=== PATIENT | female | born 2000 | race Caucasian/White ===

== ENCOUNTER → 2020-03-03 15:29 | Outpatient (BNVA) | payer MEDICAID, SELFPAY | PROVIDERS: Family Provider Nurse Practitioner Family; PCP Nurse Practitioner Family; Referring Provider Family Medicine; Visit Provider Orthopaedic Surgery | DX: M25.562 Pain in left knee (principal) | CPT/HCPCS: 73562 ==

== ENCOUNTER → 2024-03-25 08:32 | Outpatient (BNVA) | payer OTHER, SELFPAY | PROVIDERS: Family Provider Nurse Practitioner Family; PCP Nurse Practitioner Family; Visit Provider Nurse Practitioner Women's Health | DX: N91.2 Amenorrhea, unspecified (principal); Z34.90 Encounter for supervision of normal pregnancy, unspecified, unspecified trimester | CPT/HCPCS: 81025; 84702; 86850; 86900 ==

== ENCOUNTER → 2024-04-12 13:17 | Outpatient (BNVA) | payer OTHER, SELFPAY | PROVIDERS: Family Provider Nurse Practitioner Family; PCP Nurse Practitioner Family; Visit Provider Nurse Practitioner Women's Health | DX: Z36.9 Encounter for antenatal screening, unspecified (principal) | CPT/HCPCS: 76801 ==

== ENCOUNTER → 2024-04-22 09:00 | Outpatient (BNVA) | payer OTHER, SELFPAY | PROVIDERS: Family Provider Nurse Practitioner Family; PCP Nurse Practitioner Family; Visit Provider Nurse Practitioner Women's Health | DX: Z34.90 Encounter for supervision of normal pregnancy, unspecified, unspecified trimester (principal) | CPT/HCPCS: 80307; 84315; 84443; 85025; 86592; 86762; 86803; 86850; 86900; 87086; 87340; 87491; 87591; 87806 ==

== ENCOUNTER → 2024-05-13 14:36 | Outpatient (BNVA) | payer OTHER, SELFPAY | PROVIDERS: Family Provider Nurse Practitioner Family; PCP Nurse Practitioner Family; Visit Provider Obstetrics & Gynecology | DX: Z34.90 Encounter for supervision of normal pregnancy, unspecified, unspecified trimester (principal) | CPT/HCPCS: 84315; 87624 ==

== ENCOUNTER → 2024-06-04 14:14 | Outpatient (BNVA) | payer BC, SELFPAY | PROVIDERS: Family Provider Nurse Practitioner Family; PCP Nurse Practitioner Family; Visit Provider Nurse Practitioner Women's Health | DX: Z32.01 Encounter for pregnancy test, result positive (principal) | CPT/HCPCS: 82105; 84315; 87086 ==

== ENCOUNTER → 2024-07-01 09:24 | Outpatient (BNVA) | payer BC, SELFPAY | PROVIDERS: Family Provider Nurse Practitioner Family; PCP Nurse Practitioner Family; Visit Provider Obstetrics & Gynecology | DX: Z36.9 Encounter for antenatal screening, unspecified (principal) | CPT/HCPCS: 76805 ==

== ENCOUNTER → 2024-07-08 09:47 | Outpatient (BNVA) | payer BC, SELFPAY | PROVIDERS: Family Provider Nurse Practitioner Family; PCP Nurse Practitioner Family; Visit Provider Obstetrics & Gynecology | DX: Z34.90 Encounter for supervision of normal pregnancy, unspecified, unspecified trimester (principal) | CPT/HCPCS: 84315; 85025 ==

== ENCOUNTER → 2024-07-29 14:15 | Outpatient (BNVA) | payer BC, SELFPAY | PROVIDERS: Family Provider Nurse Practitioner Family; PCP Nurse Practitioner Family; Visit Provider Nurse Practitioner Women's Health | DX: Z34.90 Encounter for supervision of normal pregnancy, unspecified, unspecified trimester (principal) | CPT/HCPCS: 84315 ==

== ENCOUNTER → 2024-08-26 11:03 | Outpatient (BNVA) | payer BC, SELFPAY | PROVIDERS: Family Provider Nurse Practitioner Family; PCP Nurse Practitioner Family; Visit Provider Obstetrics & Gynecology | DX: Z34.90 Encounter for supervision of normal pregnancy, unspecified, unspecified trimester (principal) | CPT/HCPCS: 82950; 84315; 85025 ==

== ENCOUNTER → 2024-08-27 15:54 | Outpatient (BNVA) | payer BC, SELFPAY | PROVIDERS: Family Provider Nurse Practitioner Family; PCP Nurse Practitioner Family; Visit Provider Nurse Practitioner Women's Health | DX: Z34.90 Encounter for supervision of normal pregnancy, unspecified, unspecified trimester (principal) | CPT/HCPCS: 81000; 87086 ==

== ENCOUNTER → 2024-09-03 13:24 | Outpatient (BNVA) | payer BC, SELFPAY | PROVIDERS: Family Provider Nurse Practitioner Family; PCP Nurse Practitioner Family; Visit Provider Obstetrics & Gynecology | DX: Z36.9 Encounter for antenatal screening, unspecified (principal) | CPT/HCPCS: 76816 ==

== ENCOUNTER → 2024-09-09 10:51 | Outpatient (BNVA) | payer BC, SELFPAY | PROVIDERS: Family Provider Nurse Practitioner Family; PCP Nurse Practitioner Family; Visit Provider Obstetrics & Gynecology | DX: Z34.90 Encounter for supervision of normal pregnancy, unspecified, unspecified trimester (principal) | CPT/HCPCS: 84315 ==

== ENCOUNTER → 2024-09-24 08:19 | Outpatient (BNVA) | payer BC, SELFPAY | PROVIDERS: Family Provider Nurse Practitioner Family; PCP Nurse Practitioner Family; Visit Provider Nurse Practitioner Women's Health | DX: Z34.90 Encounter for supervision of normal pregnancy, unspecified, unspecified trimester (principal) | CPT/HCPCS: 84315 ==

== ENCOUNTER → 2024-10-07 10:56 | Outpatient (BNVA) | payer BC, SELFPAY | PROVIDERS: Family Provider Nurse Practitioner Family; PCP Nurse Practitioner Family; Visit Provider Nurse Practitioner Women's Health | DX: Z34.90 Encounter for supervision of normal pregnancy, unspecified, unspecified trimester (principal) | CPT/HCPCS: 84315 ==

== ENCOUNTER → 2024-10-21 11:36 | Outpatient (BNVA) | payer BC, SELFPAY | PROVIDERS: Family Provider Nurse Practitioner Family; PCP Nurse Practitioner Family; Visit Provider Obstetrics & Gynecology | DX: Z36.9 Encounter for antenatal screening, unspecified (principal) | CPT/HCPCS: 76816; 84315; 87081 ==

== ENCOUNTER → 2024-10-29 13:52 | Outpatient (BNVA) | payer BC, SELFPAY | PROVIDERS: Family Provider Nurse Practitioner Family; PCP Nurse Practitioner Family; Visit Provider Nurse Practitioner Women's Health | DX: Z34.90 Encounter for supervision of normal pregnancy, unspecified, unspecified trimester (principal) | CPT/HCPCS: 84315 ==

== ENCOUNTER → 2024-11-08 10:59 | Outpatient (BNVA) | payer BC, SELFPAY | PROVIDERS: Family Provider Nurse Practitioner Family; PCP Nurse Practitioner Family; Visit Provider Obstetrics & Gynecology | DX: Z34.90 Encounter for supervision of normal pregnancy, unspecified, unspecified trimester (principal) | CPT/HCPCS: 84315 ==

== ENCOUNTER → 2024-11-14 10:19 | Outpatient (BNVA) | payer BC, SELFPAY | PROVIDERS: Family Provider Nurse Practitioner Family; PCP Nurse Practitioner Family; Visit Provider Nurse Practitioner Women's Health | DX: Z34.90 Encounter for supervision of normal pregnancy, unspecified, unspecified trimester (principal) | CPT/HCPCS: 84315 ==

== ENCOUNTER 2024-11-17 18:09 | Inpatient (IN) | payer BC, SELFPAY ==
[2024-11-17] VITALS (21 sets, daily range): BP systolic 117–141; BP diastolic 58–76; PULSE 75–98; BMI 31.4
--- NOTE | 2024-11-17 18:14 | PM.OPHPUD ---
Labor & Delivery H&P Update Date of Procedure: November 17, 2024 Date H&P Performed: 11/14/24 Changes to previous documentation: 23-year-old female G1, P0 at 40.2 weeks gestation with LMP 02/09/2024, JONY 11/15/2024 based on LMP and consistent with 8-week ultrasound. Patient presented to labor and delivery with complaints of vaginal spotting and onset of contractions on , 11/14/2024 but increased around 4:00 PM. Patient admits to good movement. record reviewed with patient. Patient medical history- SVT currently being treated with metoprolol twice daily. (Unsure of dose) Surgical history?appendectomy Allergies?NKDA Social history?patient denies smoking alcohol or street drugs. Family history?unremarkable lab Blood type O+, antibody screen negative, hep C nonreactive, rubella immune, RPR nonreactive, HIV nonreactive, GC chlamydia not detected, 1 hour Glucola 105, UDS negative Ultrasound 10/11/2024 findings heart rate 161, vertex presentation, placenta anterior without evidence of previa, amniotic fluid index 10.2 cm.. ED FW 2985 g Discussion of patient option of going home letting spontaneous labor progress are being admitted to labor and delivery for augmentation of labor. Review of Pitocin medication to increase contraction frequency and strength. Possibility of nonreassuring monitoring during use of Pitocin which may lead to need to proceed with section delivery. Patient verbalizes understanding and request to proceed with augmentation. EFM?category 1 Pelvic exam?cervix 3 cm / 70%/-2 vertex. Admission Diagnosis: Preop diagnosis: 40.2 weeks gestation Primary indication for procedure: Early labor at 40.2 wk gestation Planned procedure: Admission to labor and delivery for elective augmentation of labor. Related Problem List Diagnoses (1) 40 weeks gestation of : Early labor GBS negative (2) SVT (supraventricular tachycardia): Controlled and treated with metoprolol 50 mg twice daily.
[2024-11-17 19:04] LABS: Basophils % 0.4 %; Eosinophils # 0.1 10^3/uL (0.0-0.8); Eosinophils % 0.8 %; Hematocrit 32.8 % (36-47); Lymphocytes # 1.6 10^3/uL (0.8-4.8); Lymphocytes % 15.1 %; Mean Corpuscular HGB Conc 32.3 g/dL (30-55); Mean Corpuscular Hemoglobin 27.2 pg (27-33); Mean Corpuscular Volume 84.1 fl (85-98); Mean Platelet Volume 12.3 fL (7.4-10.4); Monocytes # 0.7 10^3/uL (0.2-0.9); Monocytes % 6.5 %; Neutrophils # 7.93 10^3/uL (1.8-7.7); Neutrophils % 76.4 %; Nucleated Red Blood Cells % 0 %; Platelet Count 169 10^3/cmm (157-399); Red Cell Distribution Width 14.2 % (12.1-15.1); White Blood Count 10.37 10^3/uL (3.29-11.43)
[2024-11-17] MEDS: dextrose 5%-lactated ringers 1,000 ML 124 ML IV (19:48)
[2024-11-17] MEDS: oxytocin 30 UNIT/500 ML BAG IV (19:48)
--- NOTE | 2024-11-17 23:06 | ANES.PREANE2 ---
Pre-Anesthetic Assessment Height/Weight: Height 1.63 m Weight 83.007 kg Pulse BP O2 Del Method 78 120/63 Room Air 11/17/24 22:49 11/17/24 22:49 11/17/24 18:41 Preop Diagnosis: 40.2 weeks gestation labor epidural Familial anesthetic complications: PONV Was Beta Keiry taken within 24 hours: Yes Was Clonidine taken within 24 hours: N/A Social No alcohol and No tobacco Exam alert, oriented x 3, clear to auscultation bilaterally and regular rate & rhythm Airway Mallampati: Class II History/ROS No significant history except as noted Pulmonary None reported CV/HEM HX SVT controlled with Metoprolol None reported Hepatic None reported GI None reported Metabolic None reported Musc/skel None reported Neuropsych None reported Anesthetic Plan ASA status: 2 Anesthesia: Anesthesia Evaluation and Regional (specify below) (epidural ) Medications/Allergies Home Medications ?Medication ?Instructions ?Recorded ?Confirmed ?Last Taken ?Type PNV 153-FA 400 mcg-om3 35 mg-dha 1 tab PO DAILY 04/22/24 11/17/24 11/17/24 09:00 History 25 mg-epa 5 mg-fish oil chew tablet ( Gummies) metoprolol tartrate 50 mg tablet See Rx Instructions .Route 08/29/24 11/17/24 11/17/24 09:00 Rx .COMPLEX #60 tabs Allergies Allergy/AdvReac Type Severity Reaction Status Date / Time No Known Allergies Allergy Verified 11/14/24 10:11 Current Medications Generic Name Dose Route Start Last Admin Trade Name Freq PRN Reason Stop Dose Admin Dextrose/Lactated Ringer's 1,000 mls @ 125 mls/hr 11/17/24 18:45 11/17/24 19:48 Dextrose 5%-Lactated Ringers IV 124 mls/hr .Q8H ANTONIO Administration Oxytocin 30 unit in 500 mls @ 1 mls/hr 11/17/24 19:00 11/17/24 19:48 Pitocin IV 1 milliunit/min .Q24H ANTONIO 1 mls/hr Protocol Administration 1 MILLIUNIT/MIN PFSH Anesthesia Medical History No pertinent past medical history neghx: htn, dm, thyroid, dvt/pe PCP: [facility] Surgical History No pertinent past surgical history History of appendectomy Family History Denies family history of Colon cancer Ovarian cancer Diabetes Heart disease Breast cancer Hypertension Uterine cancer Thyroid disease Stroke Social History Smoking and tobacco/nicotine status: never used tobacco/nicotine Female Reproductive History : 1 Data Anesthesia 11/17/24 18:30 Short CBC 11/17/24 Range/Units 18:30 WBC 10.37 (3.29-11.43) 10^3/uL Hgb 10.60 L (11.27-16.99) g/dL Hct 32.8 L (36-47) % MCV 84.1 L (85-98) fl Plt Count 169 (157-399) 10^3/cmm Neut % (Auto) 76.4 % Neut # (Auto) 7.93 H (1.8-7.7) 10^3/uL Blood Bank 11/17/24 18:30 Blood Type O Positive Rho(D) Type Rh positive Antibody Screen Negative
--- NOTE | 2024-11-17 23:44 | PM.OBGYPN ---
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 Patient presented to OB triage with complaints of occasional contraction and spotting, with cervical dilatation of 3 cm / 70%/-2 vertex presentation. Patient was given the option to be discharged to home and await spontaneous labor or to be admitted for labor augmentation. Patient elected to be admitted for augmentation with Pitocin. Patient has progressed to 4 cm 80%/-2 . Contractions Q 2 to 4 minutes. EFM?category 1 Labor: Station: -3 Amniotic Membrane Status: Intact Monitor Mode: Palpation Contraction Pattern: Irregular Vitals/I&O/Wt Last Vital Signs Pulse 82 11/17/24 23:34 BP 119/70 11/17/24 23:34 O2 Del Method Room Air 11/17/24 18:41 Weight last 48 hrs Weight 83.007 kg Weight 83.007 kg Data 11/17/24 18:30 A&P Assessment and plan (1) 40 weeks gestation of : GBS negative Early labor (2) SVT (supraventricular tachycardia): PDMP PDMP Reviewed: Not Reviewed Attestations Medical Necessity Statement*: 23-year-old female G1, P0 at 40.2 weeks gestation in early labor admitted to labor and delivery for labor augmentation. Coding Level of Care Code Acute Code for Chg Fwd Diagnoses 40 weeks gestation of Z3A.40 SVT (supraventricular tachycardia) I47.10
[2024-11-18] VITALS (57 sets, daily range): BP systolic 107–163; BP diastolic 53–81; PULSE 65–142; RESP 16–17; TEMP 36.7–36.8; O2SAT 96–100
[2024-11-18] MEDS: sodium chloride 0.9% 1,000 ML 999 ML IV (00:14)
[2024-11-18] MEDS: ROPivacaine syringe 100 MG/50 ML SYRINGE 13 MG EPIDURAL (01:35)
--- NOTE | 2024-11-18 01:40 | ANES.PROC ---
Anesthesia Procedures Procedure/Date: 11/18/24 Labor epidural Epidural: Time Out Performed: Yes Consents Signed: Procedure Consent Consent: requested by attending/covering physician, from patient, risks and benefits reviewed and patient agrees to proceed Lumbar Level: L4-L5 Epidural position: sitting Epidural procedure: sterile prep of area, 1% lidocaine to numb the area, 18 g needle, negative for paresthesia passed, neg for paresthesia, test dose given, 1.5% xylocaine 1:200k epi, 0.2% Ropivacaine bolus ml (5), placed PCEA, no systemic response, sterile dressing applied, L.U.D. no apparent complications and 0.2% Ropiavacaine @ mls/hr (13) Additional Comments: ERIC 5cm, catheter easily threaded to 5cm in the space. VS monitored throughout and remained stable. 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
[2024-11-18] MEDS: dextrose 5%-lactated ringers 1,000 ML 116 ML IV (04:38)
--- NOTE | 2024-11-18 07:29 | P.PCNOB_ITS ---
Delivery Note: Date of delivery: November 18, 2024 Pre-delivery diagnoses: 1. 40.3 weeks IUP 2. Early labor 3. History of SVT Procedure: 1. Augmentation of labor with Pitocin 2. viable female 7 pounds 7 ounces Op report anesthesia: Epidural Delivering Physician: Anabell Wood DO Estimated blood loss (mL): 500 Findings: Viable female baby, ROP presentation with nuchal cord x 1 Terminal meconium Delivery: 23-year-old female after having a variable decel proceeded to complete dilatation. Patient was allowed to push with contractions and the vertex presented in a ROP presentation at the perineum. After several other pushes the vertex delivered with a nuchal cord x 1 being easily reduced. The anterior followed by the posterior shoulders were delivered with the remainder the baby's body to follow. After short delay the cord was clamped and cut and baby placed on the mother's abdomen for bonding. Nursing assessment and evaluation with drying and stimulation of the infant. A three-vessel cord was noted venous and arterial blood gases drawn as well as cord blood and handed off. The uterus was massaged, Pitocin IV solution started in a bolus manner. The uterus firmed nicely. The cervix and vaginal vault were explored and a 2 cm vaginal laceration repaired with 2-0 Vicryl with a running stitch. Good approximation and hemostasis result. The uterus was once again massaged and remained firm with minimal bleeding. Mother and infant are both in stable and satisfactory condition 8/9 weight 7 pounds 7 ounces anesthesia epidural Post-Delivery Status: Stable History History History 1 Term 1 0 Miscarriages/Ectopic 0 Living Children 1 Past Pregnancies Del. Date GA/Weeks Outcome Route Wt Inf Gender Labor Lgth Comp. Anesth esia Location 11/18/24 40 live - full term Vaginal 3.374 kg Female regional A&P Assessment and plan (1) Spontaneous vaginal delivery: (2) 40 weeks gestation of : Currently on levothyroxine for hypothyroidism with a thyroid cyst. (3) SVT (supraventricular tachycardia): Currently takes metoprolol 50 mg twice daily Plan 1. Begin care. PDMP PDMP Reviewed: Not Reviewed Coding Level of Care Code Acute Code for Chg Fwd Diagnoses Spontaneous vaginal delivery O80 40 weeks gestation of Z3A.40 SVT (supraventricular tachycardia) I47.10
[2024-11-18] MEDS: PRENATAL VIT NO.130/IRON/FOLIC 1 EACH TABLET PO (10:11)
[2024-11-18] MEDS: ibuprofen 800 mg tablet PO ×3 (10:11→20:55)
[2024-11-18] MEDS: benzocaine-menthol 78 gm Canister 1 SPRAY TOPICAL (10:12)
[2024-11-18] MEDS: docusate sodium 100 mg Capsule PO ×2 (10:12→18:16)
[2024-11-18] MEDS: metoprolol tartrate 50 mg Tablet PO ×2 (10:12→20:54)
[2024-11-18 21:31] LABS: Hematocrit 31.2 % (36-47); Mean Corpuscular HGB Conc 31.7 g/dL (30-55); Mean Platelet Volume 12.5 fL (7.4-10.4); Platelet Count 146 10^3/cmm (157-399); Red Blood Count 3.67 10^6/uL (3.85-5.65); Red Cell Distribution Width 14.2 % (12.1-15.1); White Blood Count 11.87 10^3/uL (3.29-11.43)
[2024-11-19 06:00] VITALS: BP 118/74; PULSE 82; RESP 17; TEMP 36.5; O2SAT 98
--- NOTE | 2024-11-19 07:37 | ANE.PACU2 ---
Inpatient post-anesthesia follow up: Airway intact: Yes Vital signs: Temperature 97.7 F Pulse Rate 77 Respiratory Rate 17 Blood Pressure 107/68 Pulse Oximetry 98 Oxygen Delivery Me thod Room Air Oxygen Flow Rate Fraction of Inspir ed Oxygen Hydration adequate: Yes Nausea and vomiting: No Pain level: 2 Mental status: Baseline Epidural Start/End: Epidural Start Date: 11/18/24 Epidural Start Time: 01:16 Epidural End Date: 11/18/24 Epidural End Time: 11:43
[2024-11-19] MEDS: ibuprofen 800 mg tablet PO (09:10)
[2024-11-19] MEDS: docusate sodium 100 mg Capsule PO (09:11)
[2024-11-19] MEDS: PRENATAL VIT NO.130/IRON/FOLIC 1 EACH TABLET PO (09:11)
[2024-11-19] MEDS: metoprolol tartrate 50 mg Tablet PO (09:13)
[2024-11-19 10:30] VITALS: BP 107/68; PULSE 77; RESP 17; TEMP 36.5; O2SAT 98
--- NOTE | 2024-11-28 13:42 | PM.OBGYDC ---
Discharge Providers NUTRITION TEACHER Date of Admission: 11/17/24 18:09 Date of Discharge: 11/18/24 Attending Provider at Admission: Anabell Wood DO Attending Provider at Discharge: Anabell Wood DO Primary Care Provider: Elma Rowland DO Diagnoses at Discharge Discharge Diagnosis (1) Spontaneous vaginal delivery: Details from hospital stay: 23-year-old female G1, P1 s/p after augmentation of labor on 11/18/2024. Patient was initially admitted at 3 to 4 cm dilated and was augmented with Pitocin and progressed to complete dilatation and uncomplicated delivery. Patient had a history of symptomatic SVT and has been treated with metoprolol with no further complications. expectations and discharge has been reviewed with patient to include no heavy lifting pushing or pulling no sexual intercourse x 6 weeks. Patient has been counseled on continuation of her home meds including vitamins and iron and her metoprolol. Patient is encouraged to follow-up at the women's clinic in 4 to 6 weeks for evaluation and contraceptive counseling. VSS, afebrile Exam?fundus?firm below umbilicus and nontender to palpation. Lochia light rubra Extremities?no edema Lab?hemoglobin 9.9, hematocrit 31.2, platelets 146, WBC 11.8 Status: Inactive (2) 40 weeks gestation of : Status: Inactive (3) SVT (supraventricular tachycardia): Status: Inactive Reason for Visit Reason for Visit: bleeding c ctx Information Peripartum Data: Infant Delivery Method: Vaginal Laceration description: None Episiotomy description: None complications: none Physical Exam Urinary Catheter Management: Hernandez: Cath Placed During This Visit: yes, but has since been removed by the nurse Reason for Continuing Indwelling Catheter: Decision to DC Catheter Urinary Catheter Date of Insertion: 11/18/24 Urinary Catheter Time of Insertion: 01:50 Date Urinary Catheter Removed: 11/18/24 Time Urinary Catheter Discontinued: 06:15 History History History 1 Term 1 0 Miscarriages/Ectopic 0 Living Children 1 Past Pregnancies Del. Date GA/Weeks Outcome Route Wt Inf Gender Labor Lgth Comp. Anesthesia Location 11/18/24 40 live - full term Vaginal 3.374 kg Female regional Discharge Data Studies Completed and Pending Laboratory Results WBC 11.87 10^3/uL (3.29-11.43) H 11/18/24 21:00 RBC 3.67 10^6/uL (3.85-5.65) L 11/18/24 21:00 Hgb 9.90 g/dL (11.27-16.99) L 11/18/24 21:00 Hct 31.2 % (36-47) L 11/18/24 21:00 MCV 85.0 fl (85-98) 11/18/24 21:00 MCH 27.0 pg (27-33) 11/18/24 21:00 MCHC 31.7 g/dL (30-55) 11/18/24 21:00 RDW 14.2 % (12.1-15.1) 11/18/24 21:00 Plt Count 146 10^3/cmm (157-399) L 11/18/24 21:00 MPV 12.5 fL (7.4-10.4) H 11/18/24 21:00 Neut % (Auto) 76.4 % 11/17/24 18:30 Lymph % (Auto) 15.1 % 11/17/24 18:30 [place] % (Auto) 6.5 % 11/17/24 18:30 Eos % (Auto) 0.8 % 11/17/24 18:30 Baso % (Auto) 0.4 % 11/17/24 18:30 Neut # (Auto) 7.93 10^3/uL (1.8-7.7) H 11/17/24 18:30 Lymph # (Auto) 1.6 10^3/uL (0.8-4.8) 11/17/24 18:30 [place] # (Auto) 0.7 10^3/uL (0.2-0.9) 11/17/24 18:30 Eos # (Auto) 0.1 10^3/uL (0.0-0.8) 11/17/24 18:30 Baso # (Auto) 0.0 10^3/uL (0.0-0.1) 11/17/24 18:30 Nucleated RBC % (auto) 0 % 11/17/24 18:30 Nucleated RBCs # 0.0 /100WBC 11/17/24 18:30 Blood Type O Positive 11/17/24 18:30 Rho(D) Type Rh positive 11/17/24 18:30 Antibody Screen Negative 11/17/24 18:30 Vitals Last Vital Signs Temp 97.7 F 11/19/24 10:30 Pulse 77 11/19/24 10:30 Resp 17 11/19/24 10:30 BP 107/68 11/19/24 10:30 Pulse Ox 98 11/19/24 10:30 O2 Del Method Room Air 11/19/24 06:00 Results Labs OB ([facility]): Obstetrics US 10/21/24 Blood Type O Positive 11/17/24 Antibody Screen Negative 11/17/24 Hct, (36-47) 31.2 % L 11/18/24 Hgb, (11.27-16.99) 9.90 g/dL L 11/18/24 Rho(D) Type Rh positive 11/17/24 Plt Count, (157-399) 146 10^3/cmm L 11/18/24 Hep Bs Antigen, (Nonreactive) Non-reactive 04/22/24 Hepatitis C Antibody, (Nonreactive) Non-reactive 04/22/24 Rubella IgG Antibody, (0.0-10.0) 113.4 IU/mL H 04/22/24 RPR, (Nonreactive) Nonreactive 04/22/24 HIV 1&2 Ab & HIV 1 Ag, (Non-Reactiv) Non-reactive 04/22/24 TSH, (0.27-4.20) 0.75 uIU/mL 04/22/24 C.trachomatis RNA (TMA), (NOT DETECTED) Not detected 04/22/24 N.gonorrhoeae RNA (TMA), (NOT DETECTED) Not detected 04/22/24 T. vaginalis Amp RNA, (NOT DETECTED) Not detected 04/22/24 Chlamydia/GC Comment See note 04/22/24 Glucose 1 Hr 50 gm, (85-140) 105 mg/dL 08/26/24 Ser , Semi-Qnt 75625.00 mIU/mL 03/25/24 HCG, Qual, (Negative) Positive H 03/25/24 Urine Opiates Screen, (Negative) Negative ng/mL 04/22/24 Ur Barbiturates Screen, (Negative) Negative ng/mL 04/22/24 Ur Phencyclidine Scrn, (Negative) Negative ng/mL 04/22/24 Ur Amphetamines Screen, (Negative) Negative ng/mL 04/22/24 U Benzodiazepines Scrn, (Negative) Negative ng/mL 04/22/24 Urine Cocaine Screen, (Negative) Negative ng/mL 04/22/24 U Marijuana (THC) Screen, (Negative) Negative ng/mL 04/22/24 Micro Urine Specimen 08/27/24 Pap Smear Interpret See note 05/13/24 Discharge Plan Discharge Patient Disposition: Home Condition: Stable Prescriptions: Continued Gummies 400 mcg-35 mg- 25 mg-5 mg tablet,chewable 1 tab PO DAILY metoprolol tartrate 50 mg tablet See Rx Instructions .ROUTE .COMPLEX Qty: 60 2RF Dose Instruction: TAKE 1 TABLET BY MOUTH TWICE DAILY Rx Instructions: TAKE 1 TABLET BY MOUTH TWICE DAILY Discharge Orders: Discharge Order (Routine); Ordered 11/19/24 Ordered By: Tonny Toth Referrals: Aaliyah Bernstein NP [Nurse Practitioner, NUTRITION TEACHER] - 12/31/24 8:45 am Discharge Diet: Usual diet Discharge Activity: Increase activity as tolerated Patient Instructions: Depression (DC), Preeclampsia and Eclampsia After Delivery (GEN), Hemorrhage (DC), OB Discharge Report, OB Food/Drug Interaction Guide, Opioid Safety, OB Home Care, OB Vaginal Deliveries - [facility], Abnormal Bleeding Activity Restrictions/Additional Instructions: No heavy lifting pushing or pulling. No sexual intercourse x 6 weeks. Assessment: 1. S/p at 40.3 weeks gestation 2. History of SVT 3. History of thrombocytopenia Plan of Treatment: DC patient to home Patient to follow-up in 4 to 6 weeks at the women's clinic Discharge Attestations NUTRITION TEACHER Time Spent in Discharge Care*: less than 30 min Coding Level of Care Code Acute Code for Chg Fwd Diagnoses Spontaneous vaginal delivery O80 40 weeks gestation of Z3A.40 SVT (supraventricular tachycardia) I47.10
== END 2024-11-19 10:54 | disposition home or self-care (01) | DRG 768 ==
LOC: OPOB 18:10 → OBGYN 18:10
PROVIDERS: Admitting Provider Obstetrics & Gynecology; PCP Family Medicine; Visit Provider Obstetrics & Gynecology
DX: O48.0 Post-term pregnancy (principal); Z37.0 Single live birth; O99.42 Diseases of the circulatory system complicating childbirth; O71.4 Obstetric high vaginal laceration alone; I47.10 Supraventricular tachycardia, unspecified; Z3A.40 40 weeks gestation of pregnancy; O69.81X0 Labor and delivery complicated by cord around neck, without compression, not applicable or unspecified; O77.0 Labor and delivery complicated by meconium in amniotic fluid
CPT/HCPCS: 51702; 59025; 59409; 85025; 85027; 86850; 86900; 99211; J2590; J2795; J7030; J7121; J9999